=== PATIENT | female | born 1955 | race African-American/Black ===

== ENCOUNTER 2017-05-27 11:01 | Inpatient (IN) ==
[2017-05-27] MEDS ORDERED: SODIUM CHLORIDE 0.9% 1,000 ML IV STA (12:13)
[2017-05-27] MEDS ORDERED: ONDANSETRON 4 MG/2 ML VIAL IV STA (12:13)
--- NOTE | 2017-05-27 12:17 | Emergency Department Note ---
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 C/o LUQ pain. Denies N/V. Mode of Arrival: Ambulatory Limitations: No Limitations Source: Patient, RN Notes Reviewed Time Seen by Provider: 05/27/17 11:30 - History of Present Illness HPI Narrative: - History of Present Illness 62-year-old black female presents to ED with CC of: Blood in stool, dark red, 1 this a.m. Fever: no Keeping fluids down: yes Normal urine output: yes PCP: [facility] PMHx: HTN, GERD, arthritis, previous history of hemorrhoids that she has had surgery for Meds include Celebrex for arthritis Date of Last Menstrual Period: menopause Allergies/Adverse Reactions: Allergies Allergy/AdvReac Type Severity Reaction Status Date / Time No Known Allergies Allergy Verified 05/27/17 11:18 Home Medications: Home Medications Medication Instructions Recorded Confirmed Type Celecoxib 200 mg PO BID 05/27/17 05/27/17 History Gabapentin 300 mg PO TID 05/27/17 05/27/17 History Metoprolol Tartrate 50 mg PO BID 05/27/17 05/27/17 History Omeprazole 40 mg PO DAILY 05/27/17 05/27/17 History amLODIPine [Norvasc] 10 mg PO DAILY 05/27/17 05/27/17 History Review of System - Review of System 12 point system: reviewed and no additional remarkable complaints except as stated - Review of System Constitutional: Absent: fever Respiratory: Absent: respiratory distress, wheezing Cardiovascular: Absent: chest pain, palpitations, dyspnea on exertion Gastrointestinal: Present: as per HPI, abdominal pain, nausea, hematochezia, other (Dark red rectal bleeding). Absent: vomiting, diarrhea, constipation Neurological: Absent: weakness, vertigo Medical,Surgical,& Family Hx - Medical History Cardio: History of: Hypertension Gastrointestinal: History of: GERD, Gastrointestinal Bleed Musculoskeletal: History of: Musculoskeletal Problems (Arthritis) - Surgical History Abdominal Surgeries: Surgical HX of: Abdominal Surgery (hemorrhoid removal) - Social History Smoking Status: Never smoker Frequency of Alcohol Use: None Type of Drug Use: None Exam Physical Examination: - General General appearance: alert, in no apparent distress - HEENT Present: atraumatic, normocephalic, normal inspection, PERRL, EOMI, mucous membranes moist - Neck Neck exam: Present: normal inspection, full ROM - Respiratory Respiratory exam: Present: normal lung sounds bilaterally - Cardiovascular Cardiovascular exam: Present: regular rate, normal rhythm, normal heart sounds - Abdominal Exam Abdominal exam: Present: soft, tenderness: Yes, left upper quadrant; mild, normal bowel sounds. Absent: distention, guarding, - Rectal Exam Rectal exam: Present: Erythema just inside the anal opening, bright red blood on glove, Hemoccult positive - Extremities Exam Extremities exam: Present: normal inspection, full ROM. Absent: pedal edema, joint swelling, calf tenderness - Neurological Exam Neurological exam: Present: alert, oriented X3, no neuorosensory deficits - Psychiatric Psychiatric exam: Present: normal affect, normal mood - Skin Skin exam: Present: warm, dry, intact Vital Signs: Vital Signs Temperature 97.2 F L 05/27/17 20:00 Pulse Rate 78 05/27/17 20:00 Respiratory Rate 20 05/27/17 20:00 Blood Pressure 152/85 05/27/17 20:00 O2 Sat by Pulse Oximetry 94 L 05/27/17 20:00 Course - Consultations Time: 13:40 (Hospitalist service notified of patient presence and status. Will assess for admission.) Time: 14:00 (Hospital service here to assess patient. Will admit.) Procedures - Stool Hemoccult Procedural Steps Taken: stool placed in appropriate test area, developer placed on stool and control areas, controls appropriately positive and negative Hemoccult result: positive Results - Labs CBC & BMP: 05/27/17 22:38 05/27/17 12:17 Lab Results: I have reviewed the patients labs Labs: Laboratory Tests 05/27/17 12:17 INR 1.0 PT Patient/Control Mix 10.9 Circ Anticoag PTT 27.1 Laboratory Tests 05/27/17 12:17 Lipase 258.0 Laboratory Tests 05/27/17 12:17 Urine Color Yellow Urine Appearance Slightly hazy Urine pH 5.0 Ur Specific Ross 1.030 Urine Protein 30 Urine Glucose (UA) Negative Urine Ketones Negative Urine Blood Small Urine Nitrate Negative Urine Bilirubin Negative Urine Urobilinogen < 2.0 H Urine Leukocytes Moderate H Urine RBC 5 Urine WBC 12 Ur Squamous Epith Cells Occasional Urine Bacteria Occasional Urine Mucus Moderate Ur Culture Indicated? Results to follow - EKG EKG results: interpreted by TIMO (No STEMI) - Impressions Abdominal x-ray: Negative bowel gas pattern. Chest x-ray: Borderline cardiomegaly and obesity. No acute cardia pulmonary disease. - Diagnostic Findings Procedure: Abdominal x-ray: report reviewed by me, Chest x-ray: report reviewed by me Disposition Clinical Impression: GI bleed, UTI (urinary tract infection) Disposition: Still a Patient Condition: Stable Time of Disposition: 14:00 (Admit)
--- NOTE | 2017-05-27 12:32 | EKG Report ---
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
[2017-05-27 12:35] LABS: Basophils # 0.1 10*3/uL (0.0-0.2); Eosinophils # 0.2 10*3/uL (0.0-0.87); Eosinophils % 3.9 % (0.00-10.9); Hematocrit 33.8 VOL% (35.7-47.0); Hemoglobin 11.5 GM/DL (12.0-16.0); Immature Granulocytes % 0.5 %; Immature Granulocytes Absolute 0.03 #; Lymphocytes # 1.7 10*3/uL (1.4-4.0); Lymphocytes % 28.9 % (21.3-54.2); Mean Corpuscular Hemoglobin 32 PG (27-34); Mean Corpuscular Volume 94.4 FL (87-102); Mean Platelet Volume 10.6 FL (9.6-12.0); Monocytes # 0.6 10*3/uL (0.11-0.8); Monocytes % 9.7 % (1.7-12.7); Neutrophils # 3.3 10*3/uL (1.4-7.4); Platelet Count 213 T/CUMM (130-400); Red Blood Count 3.58 MC/CUMM (3.8-5.5); Red Cell Distribution Width 12.1 % (9.3-17.3); White Blood Count 5.9 T/CUMM (4-12)
[2017-05-27 12:48] LABS: PT Patient Result 10.9 SECS; Partial Thromboplastin Time 27.1 SECS (0-40)
[2017-05-27] MEDS ORDERED: ONDANSETRON 4 MG/2 ML VIAL ONE (12:55)
[2017-05-27 13:03] LABS: Alanine Aminotransferase 19 U/L (13-56); Albumin 3.2 G/DL (3.4-5.0); Alkaline Phosphatase 81 U/L (45-117); Aspartate Amino Transferase 19 U/L (0-37); Bilirubin,Total < 0.39 MG/DL (0.2-1.0); Blood Urea Nitrogen 17 MG/DL (7-18); Glucose 119 MG/DL (74-106); Osmolality,Calculated 283.3 MOS/KG (273-304); Potassium 3.5 MMOL/L (3.5-5.1); Sodium 141 MMOL/L (136-145); Total Protein 6.6 G/DL (6.4-8.3); Troponin I Only < 0.015 NG/ML (0.00-0.045)
--- NOTE | 2017-05-27 13:17 | XRay Report ---
XR chest 1V portable Indication: Shortness of breath. Chest one view: Comparison 06/05/2012. Obesity again shown. Heart size upper limits normal. Mediastinal contours unremarkable. No focal infiltrates. Impression: Borderline cardiomegaly and obesity. No acute cardia pulmonary disease. PROCEDURE INTERPRETED AT [facility] DEPARTMENT OF RADIOLOGY Final Report Signed by: Sagar Glover M.D.
--- NOTE | 2017-05-27 13:17 | XRay Report ---
XR abdomen complete w decub Indication: Abdominal pain. Abdomen 3 views: No small bowel dilatation. Normal amount of stool and gas projects over the colon, without dilatation. No evidence of free air. No abnormal calcifications or masses. Degenerative changes lumbosacral spine are significant. Impression: Negative bowel gas pattern. PROCEDURE INTERPRETED AT [facility] DEPARTMENT OF RADIOLOGY Final Report Signed by: Sagar Glover M.D.
[2017-05-27 13:31] LABS: Apearance,Urine Slightly Hazy (Clear); Bacteria,Urine Occasional /HPF (Few); Bilirubin,Urine Negative (Negative); Blood, Urine Small mg/dL (Negative); Glucose,Urine (UA) Negative (Negative); Ketones,Urine Negative (Negative); Mucus,Urine Moderate /LPF (Occasional); Nitrite,Urine Negative (Negative); Protein,Urine 30 MG/DL; RBC,Urine 5 /HPF (0-4); Squamous Epithelial Cell,Urine Occasional /HPF (0-10); Urine Color Yellow (Yellow); Urine Urobilinogen < 2.0 EU/DL (0.2-1.0); WBC,Urine 12 /HPF (0-6)
[2017-05-27] MEDS ORDERED: KETOROLAC 30 MG/1 ML VIAL ONE (13:32)
[2017-05-27] MEDS ORDERED: KETOROLAC 30 MG/1 ML VIAL IV STA (13:33)
--- NOTE | 2017-05-27 14:34 | Hospitalist History & Physical ---
<Aly Smith - Last Filed: 05/27/17 14:35> Assessment and Plan - Time spent with patient Time spent with patient: Greater than 30 minutes (1) GI bleed Status: Acute Assessment and plan: Patient reports one episode of dark red stool this morning. Patient does take Celebrex for arthritis. This could be a potential source for the bleed. Vital signs are stable though her blood pressure does seem to be dropping. H&H is currently 11 and 33. Admitted for observation. IV fluids for maintenance. Type and screen. Serial H&H's and EKGs. Current Visit: Yes (2) UTI (urinary tract infection) Status: Acute Assessment and plan: Urine culture to follow. IV antibiotics empirically. Current Visit: Yes (3) Hypertension Status: Acute Assessment and plan: Monitor BP. Hold all antihypertensives at the moment. Current Visit: Yes (4) Arthritis Status: Acute Assessment and plan: Patient takes Celebrex. This could be the source of her bleeding. Will cautiously hold. Current Visit: Yes History of Present Illness Chief complaint: BRBPR History of present illness: Ms. Brito is a 62 year old -[place] female with a past medical history significant for hypertension, arthritis, GERD, hemorrhoids who presents to the ED today with complaints of bloody stool having onset this morning at approximately 1045. Patient reports that she noticed dark red stool in the toilet after a bowel movement this morning at work. She states this is the first time anything like this is happening. She denies any headache, dizziness , blurry vision, syncope, faint feelings, chest pain, palpitations, shortness of breath, hematemesis, hematuria. She denies any recent illness or sick contacts. She complains of mid abdominal pain that is "dull and intermittent". Patient's blood pressure on admission was 121/64. However, 2 hours later, patient blood pressure is 113/74. All other vitals are stable. Lab work reveals hemoglobin 11.5, hematocrit 33.8. Urinalysis reveals moderate leukocytes, occasional squamous epithelial cells and bacteria. UC results to follow. The patient is followed by physicians at the local [facility]. This case been discussed with Dr. Bethea, and the patient will be admitted to the hospital medicine service for further evaluation and treatment. Patient is a full code. Patient did not bring medications from home however she states that she takes 2 antihypertensive medications (which she does not recall the name of), Celebrex (potential source for bleeding), and Prilosec. Her daughter has agreed to go home and retrieve the medications for us. Allergies Allergy/AdvReac Type Severity Reaction Status Date / Time No Known Allergies Allergy Verified 05/27/17 11:18 Medical,Surgical,& Family Hx - Medical History Cardio: History of: Hypertension Gastrointestinal: History of: GERD, Gastrointestinal Bleed Musculoskeletal: History of: Musculoskeletal Problems (Arthritis) - Surgical History Abdominal Surgeries: Surgical HX of: Abdominal Surgery (hemorrhoid removal) - Family History Family History: Reports;: Family Diabetes, Family Heart Disease, Family Hypertension - Social History Smoking Status: Never smoker Frequency of Alcohol Use: None Type of Drug Use: None Marital Status: Single Lives With:: Alone Functional capacity: independent ambulation - Constitutional Constitutional: Present: fatigue, weakness. Absent: frequent falls, headache(s) - EENT Eyes: Absent: blurry vision, loss of vision Nose, mouth and throat: Absent: headache(s), hoarseness, vertigo - Cardiovascular Cardiovascular: Absent: chest pain at rest, chest pain with activity, dyspnea, dyspnea on exertion, edema, palpitations - Respiratory Respiratory: Absent: cough, dyspnea, hemoptysis, wheezing, pain on inspiration - Gastrointestinal Gastrointestinal: Present: abdominal pain, hematochezia. Absent: change in bowel habits, diarrhea, melena, nausea, vomiting - Genitourinary Genitourinary: Absent: dysuria, flank pain, hematuria - Musculoskeletal Musculoskeletal: Present: arthralgias - Neurological Neurological: Absent: abnormal gait, confusion, dizziness, headache(s), numbness , syncope - Psychiatric Psychiatric: Absent: anxiety, confusion, depression - Endocrine Endocrine: Present: cold intolerance, heat intolerance - Hematologic/Lymphatic Hematologic/Lymphatic: Absent: easy bleeding, easy bruising Exam - Constitutional Vitals: Period Temp Pulse Resp BP Sys/Cantor Pulse Ox Last 24 Hr 98.1 F-98.1 F 66-82 17-18 113-121/64-74 97 Exam: General appearance: Obese, no acute distress - Head Head exam: Present: normocephalic, atraumatic - Eye Eye exam: Present: EOMI. Absent: conjunctival injection, nystagmus Pupils: Present: DEE DEE, normal accommodation - ENT ENT exam: Present: normal exam, normal external ear exam - Neck Neck exam: Present: normal inspection. Absent: lymphadenopathy, tenderness, thyromegaly - Respiratory Respiratory exam: Present: clear to auscultation bilaterally. Absent: rales, rhonchi, wheezes - Cardiovascular Cardiovascular exam: Present: regular rate and rhythm, murmur. Absent: carotid bruit, gallop, rubs - GI/Abdominal GI/Abdominal exam: Present: normal bowel sounds. Absent: ascites, distended, mass - Extremities Exam Extremities exam: Present: normal inspection, normal capillary refill. Absent: edema - Back Exam Back exam: Absent: CVA tenderness (L), CVA tenderness (R) - Neurological Exam Neurological exam: Present: alert, oriented X3, CN II-XII intact, reflexes normal - Psychiatric Psychiatric exam: Present: normal affect, normal mood - Skin Skin exam: Present: normal color, warm, dry Results - Labs CBC & BMP: 05/27/17 12:17 05/27/17 12:17 Lab Results: I have reviewed the past 24 hour labs - EKG EKG results: interpreted by TIMO, sinus rhythm <Trisha Bethea - Last Filed: 05/27/17 16:40> History of Present Illness History of present illness: Patient seen and examined independently of MARTI Smith, agree with history, assessment and plan as documented. 62 y/o AAF presents with dark red blood in her stool. Reports that this has only happened once several years ago following hernia surgery. She denies ever having a colonoscopy or egd. H/H is ok right now. Will continue to monitor H/H. IV fluids. Will consult GI. Exam - Constitutional Vitals: Period Temp Pulse Resp BP Sys/Cantor Pulse Ox Last 24 Hr 98.1 F-98.1 F 66-82 17-18 113-121/64-74 97 Results - Labs CBC & BMP: 05/27/17 16:06 05/27/17 12:17
[2017-05-27] MEDS ORDERED: ACETAMINOPHEN 325 MG TABLET PO PRN (14:49)
[2017-05-27 16:21] LABS: Hematocrit 33.1 VOL% (35.7-47.0); Hemoglobin 11.2 GM/DL (12.0-16.0)
[2017-05-27] MEDS: SODIUM CHLORIDE 0.9% 1,000 ML IV SCH (16:21)
[2017-05-27] MEDS: LEVOFLOXACIN INJ 750 MG in PREMIX 1 EACH IV SCH (16:50)
--- NOTE | 2017-05-27 17:19 | Gastrointestinal Consult Note ---
Assessment and Plan (1) GI bleed Status: Acute Assessment and plan: This patient is having maroon colored stools and although I suspect that she may be having an upper GI bleed possibly caused by the Celebrex that she has ingested this is by no means assured. We will perform upper endoscopy tomorrow in order to assess this. I suspect that if no significant cause of bleeding is discovered will probably leave her on clear liquids with a bowel prep that night and clean her out completely for colonoscopy on 05/29/17. We did discuss potential risks of the upper endoscopy and lower endoscopy which include but are not limited to bleeding, infection, perforation, cardiac and pulmonary compromise. She will be left on a clear liquid diet tonight and n.p.o. after midnight for the above procedure tomorrow. If ulcer that is not noted to be bleeding is discovered on upper endoscopy we could potentially let the patient go tomorrow morning after the procedure, provided her hematocrit is stable. Current Visit: Yes (2) Posthemorrhagic anemia Status: Acute Assessment and plan: As per the plan noted above. Upper endoscopy tomorrow to be followed possibly by colonoscopy if no significant cause for bleeding is noted. Patient is on Protonix 40 mg twice daily, further recommendations post endoscopy. Transfuse if patient's hematocrit drops below 24%. Transfusion parameters written. Hold Celebrex for the present time. Current Visit: Yes (3) Screening for colorectal cancer Status: Acute Assessment and plan: If the patient ends up having a lesion that explains the blood loss we can certainly schedule colonoscopy down the road to follow at some point. She is 62 and has never had a colonoscopy up to this point and does certainly need this. Current Visit: Yes History of Present Illness Chief complaint: Maroon stools, Celebrex use, bilateral upper quadrant pain, anemia History of present illness: Ms. 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 This started about 1045. She has never had a sensation like this before the patient does take Celebrex twice daily for arthritides. She went to the bathroom and subsequently passed a number of maroon stools. She has had some nausea but no vomiting, she states that she has vomited in the last 1 week and that she did not see anything that look like coffee grounds in that vomitus. She has never had a colonoscopy. She does not recall having previous upper endoscopy either. She follows with the physicians a [facility] [place]. Her hematocrit this admission was noted to be 33.8 percent and has not dropped significantly in the last 4 hours between 12 :00 and 1600 (33.1%). She has not had any abnormal chest pain nor does she typically have reflux symptoms. She has not had any bright red blood per rectum. Typically she does not have any diarrhea or constipation. She does not know of any family members with colorectal cancer or polyps. Home Medications Medication Instructions Recorded Confirmed Type Celecoxib 200 mg PO BID 05/27/17 05/27/17 History Gabapentin 300 mg PO TID 05/27/17 05/27/17 History Metoprolol Tartrate 50 mg PO BID 05/27/17 05/27/17 History Omeprazole 40 mg PO DAILY 05/27/17 05/27/17 History amLODIPine [Norvasc] 10 mg PO DAILY 05/27/17 05/27/17 History Allergies Allergy/AdvReac Type Severity Reaction Status Date / Time No Known Allergies Allergy Verified 05/27/17 11:18 Medical,Surgical,& Family Hx - Medical History Cardio: History of: Hypertension Gastrointestinal: History of: GERD, Gastrointestinal Bleed Musculoskeletal: History of: Musculoskeletal Problems (Arthritis) - Surgical History Abdominal Surgeries: Surgical HX of: Abdominal Surgery (hemorrhoid removal) - Family History Family History: Reports;: Family Diabetes, Family Heart Disease, Family Hypertension - Social History Smoking Status: Never smoker Frequency of Alcohol Use: None Type of Drug Use: None Review of systems: Constitutional: Denies fever, chills, but positive for nausea, and vomiting Eyes: Denies dry eyes, and scleral icterus HENT: Denies headaches Cardiovascular: Denies acute chest pain and claudication Respiratory: Denies shortness of breath, wheezing, and difficulty breathing, denies cough Gastrointestinal: As noted in the HPI Genitourinary: Denies dysuria and hematuria Neurologic: Denies vision loss, and loss of sensation Musculoskeletal: Patient does admit to some joint swelling, joint stiffness, and muscular weakness Psychiatric: Denies depression and jesse symptoms Heme-Lymph: Denies easy bruising, lymph node enlargement or tenderness, night sweats, excessive bleeding Allergies-immunologic: Denies pruritus and rhinorrhea Exam - Constitutional Vitals: Period Temp Pulse Resp BP Sys/Cantor Pulse Ox Last 24 Hr 98.1 F-98.3 F 66-82 17-20 113-132/64-74 94-97 General appearance: no acute distress - Head Head exam: Present: normocephalic - Eye Eye exam: Present: EOMI Pupils: Present: DEE DEE - Respiratory Respiratory exam: Present: clear to auscultation bilaterally. Absent: rhonchi, stridor, wheezes - Cardiovascular Cardiovascular exam: Present: regular rate and rhythm - GI/Abdominal GI/Abdominal exam: Present: normal bowel sounds, tenderness (Mild bilateral upper quadrant pain slightly worse in the epigastric region), soft. Absent: distended, guarding, rebound - Extremities Exam Extremities exam: Absent: edema - Neurological Exam Neurological exam: Present: alert, oriented X3, CN II-XII intact. Absent: altered - Psychiatric Psychiatric exam: Present: normal affect, normal mood - Skin Skin exam: Present: warm Results - Labs CBC & BMP: 05/27/17 16:06 05/27/17 12:17
[2017-05-27] MEDS ORDERED: SODIUM CHLORIDE 0.9% 250 ML IV PRN (17:27)
[2017-05-27] MEDS: PANTOPRAZOLE 40 MG VIAL IV SCH (21:18)
[2017-05-27 22:53] LABS: Hematocrit 32.5 VOL% (35.7-47.0); Hemoglobin 10.7 GM/DL (12.0-16.0)
[2017-05-28] MEDS: SODIUM CHLORIDE 0.9% 1,000 ML IV SCH ×3 (02:34→13:33)
[2017-05-28 05:45] LABS: Eosinophils # 0.2 10*3/uL (0.0-0.87); Eosinophils % 3.6 % (0.00-10.9); Hematocrit 33.5 VOL% (35.7-47.0); Hemoglobin 11.2 GM/DL (12.0-16.0); Immature Granulocytes % 0.5 %; Immature Granulocytes Absolute 0.02 #; Lymphocytes # 1.5 10*3/uL (1.4-4.0); Lymphocytes % 36.8 % (21.3-54.2); Mean Corpuscular HGB Conc 33.4 GM/DL (32-36); Mean Corpuscular Hemoglobin 32 PG (27-34); Mean Corpuscular Volume 94.9 FL (87-102); Mean Platelet Volume 10.6 FL (9.6-12.0); Monocytes # 0.4 10*3/uL (0.11-0.8); Monocytes % 9.2 % (1.7-12.7); Neutrophils % 48.9 % (38.7-73.9); Platelet Count 193 T/CUMM (130-400); Red Blood Count 3.53 MC/CUMM (3.8-5.5); Red Cell Distribution Width 12.2 % (9.3-17.3); White Blood Count 4.1 T/CUMM (4-12)
[2017-05-28 06:03] LABS: INR 1.1; PT Patient Result 11.6 SECS
[2017-05-28 06:20] LABS: Calcium 8.3 MG/DL (8.5-10.1); Osmolality,Calculated 286.7 MOS/KG (273-304); Potassium 3.7 MMOL/L (3.5-5.1); Risk Ratio 3.63
[2017-05-28 06:27] LABS: Platelet Estimate Normal
[2017-05-28 07:42] LABS: Hematocrit 34.3 VOL% (35.7-47.0); Hemoglobin 11.4 GM/DL (12.0-16.0)
[2017-05-28] MEDS: PANTOPRAZOLE 40 MG VIAL IV SCH ×2 (08:29→21:09)
--- NOTE | 2017-05-28 09:26 | Operative Note ---
Date of procedure: 05/28/17 Pre-op diagnosis: Upper GI bleed with hematocrit 32-34%, Celebrex use Post-op diagnosis: other (The patient has a mild anemia but no significant irritation caused by the Celebrex, there is a diffuse gastritis noted that is quite severe and appears to be likely due to Helicobacter pylori, biopsies are pending. 4 cm hiatal hernia and a Schatzki's ring are also noted the patient was dilated to 58 [place] due to this Schatzki's ring. Biopsies are pending for celiac sprue as well given the anemia. We will proceed with a colonoscopy tomorrow as findings do not completely explain the maroon colored blood loss.) Procedure: PROCEDURE: Esophagogastroduodenoscopy (EGD) with cold biopsy for pathology with dilation to 58 [place] by single pass Tompkins dilator REFERRING PHYSICIAN: Trisha Bethea MD INDICATIONS: Upper GI bleeding with hematocrit dropped to 32-34% and history of Celebrex use The prior H&P was reviewed and interrim changes are as noted: No change from GI consultation yesterday 05/27/17 ENDOSCOPIST: Phillip Serrato MD ENDOSCOPE: Olympus Video 100 System upper endoscope ASA CLASS: 3 EXAM: CV: regular rate and rhythm respiratory: Clear without wheezes abdominal: active bowel sounds MEDICATION: Per nursing anesthesia protocol, see their notes PROCEDURE: After discussion of the potential risks and benefits of upper endoscopy, the informed consent was obtained. The patient was then placed in the left lateral decubitus position where sedation was achieved as noted above. Esophageal intubation was performed without difficulty, and the endoscope was advanced through the esophagus, stomach and duodenum. A slow withdrawal was then performed with retroflexion in the stomach for careful inspection of the incisura angularis, fundus and cardia. The scope was then returned to a neutral position and withdrawn through the esophagus. There was some oropharyngeal bleeding. Unfortunately the patient developed laryngeal spasm during the case and dropped her saturation down to the single digits, she was switched over to airway bagging however this was not completely successful and the patient had to be treated with anectine and intubated. Otherwise the patient tolerated the procedure quite well. BIOPSIES: Gastric antrum/body and duodenum PHOTOGRAPHS: Obtained FINDINGS: Hypopharynx and Larynx: Oropharyngeal bleeding noted here of unclear cause. The patient did develop some laryngeal spasm during the procedure and brief discontinuation of the procedure required intubation, with completion thereafter Esohagoscopy Upper and middle thirds: Normal Lower third normal Esophogastric junctions: There was a Schatzki's ring noted at the EG junction that was widely patent however this was dilated to 58 [place] by single pass Tompkins dilator at the end of the case. With a moderate amount of heme and no significant resistance. Note that the patient was having some oral pharyngeal bleeding prior to the dilation Gastroscopy: Cardia/Fundus: 4 cm hiatal hernia otherwise a severe diffuse gastritis noted consistent with HP infection Body: Severe diffuse gastritis noted there was nonerosive consistent with Helicobacter pylori infection Antrum and pylorus The patient did have some patchy gastritis with a few erosions noted but not enough to produce the above blood loss. Duodenoscopy: Bulb normal, biopsied for sprue Second and third portions: Normal, biopsied for sprue IMPRESSION: The patient has a mild anemia but no significant irritation caused by the Celebrex, there is a diffuse gastritis noted that is quite severe and appears to be likely due to Helicobacter pylori, biopsies are pending. 4 cm hiatal hernia and a Schatzki's ring are also noted the patient was dilated to 58 [place] due to this Schatzki's ring. Biopsies are pending for celiac sprue as well given the anemia. We will proceed with a colonoscopy tomorrow as findings do not completely explain the maroon colored blood loss. RECOMMENDATIONS: Follow up for biopsy results in 1-2 weeks by phone [phone] Continue anti-gastroesophageal reflux measures (avoid carbonated and acidic beverages, avoid eating within 2 hours of bedtime, avoid tight fitting clothing , and elevate the front bed posts 6 inches prior to sleeping. Clear liquid diet today Colonoscopy prep tonight Phillip Serrato MD COPY TO: Trisha Bethea MD Anesthesia: MAC Surgeon / Physician: Phillip Serrato Estimated blood loss: minimal Specimens: other (Gastric antrum/body, duodenum) Condition: stable Disposition: post procedure unit (G.I. Suite) Results - Labs CBC & BMP: 05/28/17 07:08 05/28/17 05:13 Discharge Plan - Discharge Medications No Action Gabapentin 300 mg PO TID Omeprazole 40 mg PO DAILY Metoprolol Tartrate 50 mg PO BID amLODIPine [Norvasc] 10 mg PO DAILY Celecoxib 200 mg PO BID - Follow Up or Referral - Forms/Instructions
--- NOTE | 2017-05-28 09:34 | Gastrointestinal Progress Note ---
Assessment and Plan (1) GI bleed Status: Acute Assessment and plan: This patient is having maroon colored stools and although I suspect that she may be having an upper GI bleed possibly caused by the Celebrex that she has ingested this is by no means assured. We will perform upper endoscopy tomorrow in order to assess this. I suspect that if no significant cause of bleeding is discovered will probably leave her on clear liquids with a bowel prep that night and clean her out completely for colonoscopy on 05/29/17. We did discuss potential risks of the upper endoscopy and lower endoscopy which include but are not limited to bleeding, infection, perforation, cardiac and pulmonary compromise. She will be left on a clear liquid diet tonight and n.p.o. after midnight for the above procedure tomorrow. If ulcer that is not noted to be bleeding is discovered on upper endoscopy we could potentially let the patient go tomorrow morning after the procedure, provided her hematocrit is stable. 05/28/17--No cause seen for bleeding on the upper GI tract to the magnitude seen on exam, will proceed with colonoscopy tomorrow after prep today. Current Visit: Yes (2) Posthemorrhagic anemia Status: Acute Assessment and plan: As per the plan noted above. Upper endoscopy tomorrow to be followed possibly by colonoscopy if no significant cause for bleeding is noted. Patient is on Protonix 40 mg twice daily, further recommendations post endoscopy. Transfuse if patient's hematocrit drops below 24%. Transfusion parameters written. Hold Celebrex for the present time. 05/28/17--The patient has a mild anemia but no significant irritation caused by the Celebrex, there is a diffuse gastritis noted that is quite severe and appears to be likely due to Helicobacter pylori, biopsies are pending. 4 cm hiatal hernia and a Schatzki's ring are also noted the patient was dilated to 58 [place] due to this Schatzki's ring. Biopsies are pending for celiac sprue as well given the anemia. We will proceed with a colonoscopy tomorrow as findings do not completely explain the maroon colored blood loss. Current Visit: Yes (3) Screening for colorectal cancer Status: Acute Assessment and plan: If the patient ends up having a lesion that explains the blood loss we can certainly schedule colonoscopy down the road to follow at some point. She is 62 and has never had a colonoscopy up to this point and does certainly need this. 05/28/17--we will proceed with colonoscopy tomorrow, given the lack of findings on today's upper endoscopy. Current Visit: Yes Gastroenterology - PN: Subj Interval history: No new complaints Exam (Progress Note) - Constitutional Vitals: Period Temp Pulse Resp BP Sys/Cantor Pulse Ox Last 24 Hr 97.2 F-98.7 F 66-82 17-20 113-152/64-85 92-98 General appearance: no acute distress - Eye Eye exam: Present: EOMI - Respiratory Respiratory exam: Present: clear to auscultation bilaterally. Absent: rhonchi, stridor, wheezes - Cardiovascular Cardiovascular exam: Present: regular rate and rhythm - GI/Abdominal GI/Abdominal exam: Present: normal bowel sounds, soft. Absent: guarding, tenderness, rebound - Extremities Exam Extremities exam: Absent: edema - Neurological Exam Neurological exam: Present: alert, oriented X3 - Psychiatric Psychiatric exam: Present: normal affect, normal mood - Skin Skin exam: Present: warm Results - Labs CBC & BMP: 05/28/17 07:08 05/28/17 05:13
--- NOTE | 2017-05-28 09:37 | Anesthesia Post-Op ---
Anesthesia Post OP - Post Ansesthetic Evaluation Patient seen in post op: Yes Resp: within normal limits CV: within normal limits Mental: within normal limits Temp: within normal limits [id number]: within normal limits Nausea and Vomiting: within normal limits Pain: within normal limits Other:: Pt with laryngospasm during procedure. Unable to break with positive pressure. anectine given and patient intubated without complications. Pt awake and appropriate without distress in PACU. Racemic epi tx given. VSS.
[2017-05-28] MEDS: BISACODYL 5 MG TABLET PO SCH ×2 (10:23→16:57)
[2017-05-28] MEDS ORDERED: SUCCINYLCHOLINE 200 MG/10 ML VIAL ONE (10:49)
[2017-05-28] MEDS ORDERED: PROPOFOL 200 MG/20 ML VIAL IV ONE (10:49)
--- NOTE | 2017-05-28 10:53 | EKG Report ---
Stationary ECG Study [facility] Test Date: 05/28/2017 8:09:37 AM Pat Name: SARI CORONA Department: Room: Gender: F [employer] Hand: PRISCILLA : 1955 Requested by: Aly Smith Order Number: [id number] Reading MD: VINAY MICHAEL Intervals [place] Rate: 68 P: 44 VT: 154 QRS: -10 QRSD: 116 T: 30 QT: 377 QTc: 395 Interpretive Statements SINUS RHYTHM MODERATE INTRAVENTRICULAR CONDUCTION DELAY MODERATE T-WAVE ABNORMALITY, CONSIDER ANTERIOR ISCHEMIA INTERPRETATION BASED ON A DEFAULT AGE OF 40 YEARS Electronically Signed On 05-28-17 10:53:32 CDT by VINAY MCIHAEL [email or web address]
[2017-05-28] MEDS ORDERED: PHENOL 1.4% THROAT SPRAY 177 ML BOTTLE PO PRN (13:08)
--- NOTE | 2017-05-28 13:46 | Hospitalist Progress Note ---
Assessment and Plan (1) GI bleed Status: Acute Assessment and plan: EGD today with no cause of bleeding Plan is for colonoscopy tomorrow GI assisting Current Visit: Yes (2) UTI (urinary tract infection) Status: Acute Assessment and plan: Continue rocephin F/u urine culture Current Visit: Yes (3) Hypertension Status: Acute Assessment and plan: Controlled Current Visit: Yes Hospitalist: Subjective Interval history: No acute events overnight. Patient denies repeat episodes of bleeding. EGD today Exam - Constitutional Vitals: Period Temp Pulse Resp BP Sys/Cantor Pulse Ox Last 24 Hr 97.0 F-98.7 F 69-104 13-20 112-168/69-070 92-100 General appearance: over weight - Head Head exam: Present: normocephalic, atraumatic - Eye Eye exam: Present: EOMI Pupils: Present: DEE DEE - ENT ENT exam: Present: normal exam - Neck Neck exam: Present: normal inspection - Respiratory Respiratory exam: Present: clear to auscultation bilaterally. Absent: wheezes - Cardiovascular Cardiovascular exam: Present: regular rate and rhythm - GI/Abdominal GI/Abdominal exam: Present: normal bowel sounds, soft. Absent: tenderness, rebound - Extremities Exam Extremities exam: Present: normal inspection - Back Exam Back exam: Present: normal inspection - Neurological Exam Neurological exam: Present: alert, oriented X3 - Psychiatric Psychiatric exam: Present: normal affect, normal mood - Skin Skin exam: Present: warm, intact Results - Labs CBC & BMP: 05/28/17 07:08 05/28/17 05:13
[2017-05-28] MEDS: LEVOFLOXACIN INJ 750 MG in PREMIX 1 EACH IV SCH (14:29)
[2017-05-28] MEDS ORDERED: POLYETHYLENE GLYCOL POWDER 255 GM BOTTLE PO ONE (18:00)
[2017-05-28 18:28] LABS: Hematocrit 38.9 VOL% (35.7-47.0); Hemoglobin 12.8 GM/DL (12.0-16.0)
[2017-05-28] MEDS ORDERED: MAGNESIUM CITRATE 300 ML BOTTLE PO ONE (21:00)
[2017-05-29] MEDS: SODIUM CHLORIDE 0.9% 1,000 ML IV SCH ×2 (03:39)
[2017-05-29] MEDS: BISACODYL 5 MG TABLET PO SCH (03:39)
[2017-05-29 06:15] LABS: Basophils % 0.3 % (0.0-0.8); Eosinophils # 0.1 10*3/uL (0.0-0.87); Eosinophils % 0.8 % (0.00-10.9); Hematocrit 34.6 VOL% (35.7-47.0); Hemoglobin 11.4 GM/DL (12.0-16.0); Immature Granulocytes % 0.5 %; Immature Granulocytes Absolute 0.03 #; Lymphocytes # 1.8 10*3/uL (1.4-4.0); Lymphocytes % 27.5 % (21.3-54.2); Mean Corpuscular HGB Conc 32.9 GM/DL (32-36); Mean Corpuscular Hemoglobin 31 PG (27-34); Mean Corpuscular Volume 94.8 FL (87-102); Mean Platelet Volume 10.8 FL (9.6-12.0); Monocytes # 0.6 10*3/uL (0.11-0.8); Monocytes % 9.2 % (1.7-12.7); Neutrophils # 4.1 10*3/uL (1.4-7.4); Neutrophils % 61.7 % (38.7-73.9); Platelet Count 219 T/CUMM (130-400); Red Blood Count 3.65 MC/CUMM (3.8-5.5); Red Cell Distribution Width 12.2 % (9.3-17.3); White Blood Count 6.7 T/CUMM (4-12)
[2017-05-29 06:23] LABS: INR 1.1; PT Patient Result 11.6 SECS
[2017-05-29 06:40] LABS: Hypochromasia 1+; Lymphocytes 29 % (20-55); Platelet Estimate Adequate; Polychromasia Slight; Segmented Neutrophils 66 % (50-85); Total Cells Counted 100
[2017-05-29] MEDS: LEVOFLOXACIN INJ 750 MG in PREMIX 1 EACH IV SCH (08:00)
[2017-05-29] MEDS: PANTOPRAZOLE 40 MG VIAL IV SCH (08:00)
[2017-05-29] MEDS ORDERED: PROPOFOL 200 MG/20 ML VIAL IV ONE (13:30)
[2017-05-29] MEDS ORDERED: LIDOCAINE 2% 5 ML VIAL ONE (13:30)
--- NOTE | 2017-05-29 13:36 | Operative Note ---
Date of procedure: 05/29/17 Pre-op diagnosis: Rectal bleeding, hematocrit of 34%, rule out colonic cause Post-op diagnosis: other (Normal colonoscopy with heavy bowen-diverticulosis noted possibly the source of this patient's previous bleeding. No polyps or other bleeding source seen, moderate size internal hemorrhoids noted on retroflex. Evidence of previous polypectomy site noted in the rectum.) Procedure: PROCEDURE: Colonoscopy REFERRING PHYSICIAN: Trisha Bethea MD INDICATIONS: Hematocrit dropped to 34% in a patient who has minimal upper findings and rectal bleeding. The prior H&P was reviewed and interrim changes are as noted: No change from GI consultation 2 days ago ENDOSCOPIST: Phillip Serrato MD ENDOSCOPE: Olympus Video 100 System colonoscope COLON PREPARATION: 238 gm of PEG containing laxative and 1.9 liters of gatoraid/sports drink and dulcolax 15 mg q8 hours x 3 ASA CLASS: 3 EXAM: CV: regular rate and rhythm Respiratory: Clear without wheezes Abdominal: active bowel sounds Rectal: Good tone, no fissures or fistulas MEDICATION: Per nursing anesthesia protocol, see their notes PROCEDURE: After discussion of the potential risks and benefits of colonoscopy, the informed consent was obtained, from patient or health care surrogate. The patient was then placed in the left lateral decubitus position where sedation was achieved as noted above. Rectal examination was followed by insertion of the colonoscope. The colonoscope was passed under direct visualization to the cecum. Advancement was facilitated by insertion/withdrawl techniques, abdominal pressure and patient positioning. Once the cecal pole was reached, slow withdrawal was performed with the findings as noted below. The patient tolerated the procedure well and without complication. QUALITY OF PREP: Excellent WITHDRAWL TIME: 7 minutes 13 seconds BIOPSIES: Not obtained PHOTOGRAPHS: Obtained FINDINGS: The musoca appeared normal in the following regions: rectum, sigmoid colon, descending colon, splenic flexure, transverse colon, hepatic flexure, ascending colon and cecum. Position within the cecum was confirmed by ileocecal valve, appendiceal oriface, and the convergence of folds (crows foot) . No colitis, polyp, mass or AVM was noted throughout the colon. Heavy bowen- diverticulosis noted. Slight scarring from previous polypectomy done in the rectum. It is possible of the diverticulosis was the source the patient's bleeding, was not bleeding at the time of the endoscopy. Intubation of the TI was achieved x 5 cm with lymphoid hyperplasia noted. IMPRESSION: Normal colonoscopy with heavy bowen-diverticulosis noted possibly the source of this patient's previous bleeding. No polyps or other bleeding source seen, moderate size internal hemorrhoids noted on retroflex. Evidence of previous polypectomy site noted in the rectum. RECOMMENDATIONS: High fiber diet Repeat colonosocopy will be in 5-10 years Citrucel 1 tablespoon in 12 oz juice BID: 1 bottle: :11 Follow up by phone for biopsy results in 1-2 weeks by phone Phillip Serrato MD COPY TO: Trisha Bethea MD Anesthesia: MAC Surgeon / Physician: Phillip Serrato Estimated blood loss: minimal Specimens: none sent Condition: stable Disposition: post procedure unit (G.I. Suite) Results - Labs CBC & BMP: 05/29/17 05:27 05/28/17 05:13 Discharge Plan - Discharge Medications No Action Gabapentin 300 mg PO TID Omeprazole 40 mg PO DAILY Metoprolol Tartrate 50 mg PO BID amLODIPine [Norvasc] 10 mg PO DAILY Celecoxib 200 mg PO BID - Follow Up or Referral - Forms/Instructions
--- NOTE | 2017-05-29 13:38 | Gastrointestinal Progress Note ---
Assessment and Plan (1) GI bleed Status: Acute Assessment and plan: This patient is having maroon colored stools and although I suspect that she may be having an upper GI bleed possibly caused by the Celebrex that she has ingested this is by no means assured. We will perform upper endoscopy tomorrow in order to assess this. I suspect that if no significant cause of bleeding is discovered will probably leave her on clear liquids with a bowel prep that night and clean her out completely for colonoscopy on 05/29/17. We did discuss potential risks of the upper endoscopy and lower endoscopy which include but are not limited to bleeding, infection, perforation, cardiac and pulmonary compromise. She will be left on a clear liquid diet tonight and n.p.o. after midnight for the above procedure tomorrow. If ulcer that is not noted to be bleeding is discovered on upper endoscopy we could potentially let the patient go tomorrow morning after the procedure, provided her hematocrit is stable. 05/28/17--No cause seen for bleeding on the upper GI tract to the magnitude seen on exam, will proceed with colonoscopy tomorrow after prep today. 05/29/17--after yesterday's EGD, a colonoscopy was performed today with the following findings: Normal colonoscopy with heavy bowen-diverticulosis noted possibly the source of this patient's previous bleeding. No polyps or other bleeding source seen, moderate size internal hemorrhoids noted on retroflex. Evidence of previous polypectomy site noted in the rectum. As this patient's hematocrit is stable she is ready for discharge at this time in my opinion. I suspect the bleeding may have had similar do with the diverticular sites noted throughout the colon but I cannot say this for a fact. Current Visit: Yes (2) Posthemorrhagic anemia Status: Acute Assessment and plan: As per the plan noted above. Upper endoscopy tomorrow to be followed possibly by colonoscopy if no significant cause for bleeding is noted. Patient is on Protonix 40 mg twice daily, further recommendations post endoscopy. Transfuse if patient's hematocrit drops below 24%. Transfusion parameters written. Hold Celebrex for the present time. 05/28/17--The patient has a mild anemia but no significant irritation caused by the Celebrex, there is a diffuse gastritis noted that is quite severe and appears to be likely due to Helicobacter pylori, biopsies are pending. 4 cm hiatal hernia and a Schatzki's ring are also noted the patient was dilated to 58 Yi due to this Schatzki's ring. Biopsies are pending for celiac sprue as well given the anemia. We will proceed with a colonoscopy tomorrow as findings do not completely explain the maroon colored blood loss. 05/29/17--the patient had only minimal changes in her hematocrit which in the interim went up to 38% back down to 34%. She is doing well at this time. Colonoscopy findings as noted above. Current Visit: Yes (3) Screening for colorectal cancer Status: Acute Assessment and plan: If the patient ends up having a lesion that explains the blood loss we can certainly schedule colonoscopy down the road to follow at some point. She is 62 and has never had a colonoscopy up to this point and does certainly need this. 05/28/17--we will proceed with colonoscopy tomorrow, given the lack of findings on today's upper endoscopy. 05/29/17--Patient will need repeat colonoscopy in 5 possibly as long as 10 years. No polyps were found on today's exam, but a post polypectomy site was noted in the rectum. Current Visit: Yes Gastroenterology - PN: Subj Interval history: No new complaints Exam (Progress Note) - Constitutional Vitals: Period Temp Pulse Resp BP Sys/Cantor Pulse Ox Last 24 Hr 97.6 F-99.0 F 83-102 16-20 131-150/75-93 92-97 - Head Head exam: Present: normocephalic, atraumatic - Eye Eye exam: Present: EOMI Pupils: Present: DEE DEE - Respiratory Respiratory exam: Present: clear to auscultation bilaterally - Cardiovascular Cardiovascular exam: Present: regular rate and rhythm - GI/Abdominal GI/Abdominal exam: Present: normal bowel sounds, soft. Absent: guarding, tenderness, rebound - Extremities Exam Extremities exam: Absent: edema - Psychiatric Psychiatric exam: Present: normal affect, normal mood - Skin Skin exam: Present: warm Results - Labs CBC & BMP: 05/29/17 05:27 05/28/17 05:13
--- NOTE | 2017-05-29 14:04 | Anesthesia Post-Op ---
Anesthesia Post OP - Post Ansesthetic Evaluation Patient seen in post op: Yes Resp: within normal limits CV: within normal limits Mental: within normal limits Temp: within normal limits [id number]: within normal limits Nausea and Vomiting: within normal limits Pain: within normal limits
--- NOTE | 2017-05-29 15:12 | Discharge Summary ---
<Susan Ling - Last Filed: 05/29/17 14:47> Hospital Course - Hospital Course Hospital Course: Ms Brito 62 y/o black female with PMHx hypertension, GERD, Arthritis and hemorroids presented to ED non-urgent on 05/27/17 for c/o dark, red blood in stool x1 BM. In ED: Abd xray: negative bowel gas pattern. CXR: borderline cardiomegaly and obesity; no acute cardia pulmonary disease. EKG sinus rhythm HR 71. LABS: H&H 11.5 & 33.8; INR 1.0; PT 10.9; electrolytes within normal range. Urine noted for urinary tract infection. Hospitalist services consulted for admission on 05/27/17. Levaquin IV antibiotics started. GI was consulted. Throughout hospitalization the patients H&H remained stable without requiring any treatment or transfusions. GI results as followed: 05/28/17--UPPER GI scope performed: EGD: No cause seen for bleeding on the upper GI tract to the magnitude seen on exam, will proceed with colonoscopy tomorrow after prep today. 05/29/17-- colonoscopy was performed today with the following findings: Normal colonoscopy with heavy bowen-diverticulosis noted possibly the source of this patient's previous bleeding. No polyps or other bleeding source seen, moderate size internal hemorrhoids noted on retroflex. Evidence of previous polypectomy site noted in the rectum. It is suspected the bleeding may have to do with the diverticular sites noted throughout the colon. 05/29/17 - Patient had no repeat episodes of bleeding and appears better today. Patient H&H remains stable at 11.4 & 34.3 this a.m. From GI standpoint, it is agreed that the patient can be discharged home. Patient will discharged home today and will need to follow up with primary care physician. GI recommends to have a repeat colonscopy in 5-10 years. Patient will need to follow up with biopsy by phone in 1-[address] Serrato office. Discharge Plan - Discharge Data Disposition: Disch To Home/Self Care - Discharge Medications Continue Gabapentin 300 mg PO TID Omeprazole 40 mg PO DAILY Metoprolol Tartrate 50 mg PO BID amLODIPine [Norvasc] 10 mg PO DAILY Celecoxib 200 mg PO BID - Follow Up or Referral - Forms/Instructions Exam - Constitutional Vitals: Period Temp Pulse Resp BP Sys/Cantor Pulse Ox Last 24 Hr 97.6 F-99.0 F 83-102 16-20 119-150/62-93 92-97 Discharge Results Procedures and tests throughout hospitalization: Pending Orders 05/30/17 04:00 Prothrombin Time INR IN AM Labs on day of discharge: Labs from last 24 hours 05/29/17 05/29/17 05/29/17 14:57 11:10 07:20 WBC RBC Hgb Hct MCV MCH MCHC RDW Plt Count MPV Neut % (Auto) Lymph % (Auto) [place] % (Auto) Eos % (Auto) Baso % (Auto) Neut # (Auto) Lymph # (Auto) [place] # (Auto) Eos # (Auto) Baso # (Auto) Total Counted Immature Gran % Nucleated RBC % Immature Gran # Segmented Neutrophils Lymphocytes Monocytes Nucleated RBCs # Platelet Estimate Immature Plt Fraction Polychromasia Hypochromasia INR PT Patient/Control Mix POC Glucose 68 L 96 114 H 05/29/17 05/29/17 05/28/17 05:27 05:27 17:50 WBC 6.7 D RBC 3.65 L Hgb 11.4 L 12.8 Hct 34.6 L 38.9 MCV 94.8 MCH 31 MCHC 32.9 RDW 12.2 Plt Count 219 MPV 10.8 Neut % (Auto) 61.7 Lymph % (Auto) 27.5 [place] % (Auto) 9.2 Eos % (Auto) 0.8 Baso % (Auto) 0.3 Neut # (Auto) 4.1 Lymph # (Auto) 1.8 [place] # (Auto) 0.6 Eos # (Auto) 0.1 Baso # (Auto) 0.0 Total Counted 100 Immature Gran % 0.5 Nucleated RBC % 0.0 Immature Gran # 0.03 Segmented Neutrophils 66 Lymphocytes 29 Monocytes 5 Nucleated RBCs # 0.00 Platelet Estimate Adequate Immature Plt Fraction 0.0 Polychromasia Slight Hypochromasia 1+ INR 1.1 PT Patient/Control Mix 11.6 POC Glucose DS: Provider Date of admission: 05/27/17 13:56 Primary care physician: . No PCP Attending physician on admission: Trisha Bethea MD Consults: 05/27/17 16:40 Consult to Physician [CONS] Routine Comment: gi bleed Consulting Provider: Phillip Serrato When should Consulting Provider be notified: In am Person Notified: Dr Serrato Date Notified: 05/27/17 Time Notified: 16:45 Consult Notification Comment: Dr Serrato on floor rounding and notified of patient. Discharging clinician: Susan Ling NP <Trisha Bethea - Last Filed: 05/29/17 15:34> Hospital Course - Time spent with patient Time with patient DS: Greater than 30 minutes (35) Diagnosis - Discharge Diagnosis (1) GI bleed Status: Resolved (2) UTI (urinary tract infection) Status: Resolved (3) Hypertension Status: Chronic (4) Diverticulosis Status: Chronic Discharge Plan - Discharge Data Condition at Discharge: Stable Discharge Diet: high fiber diet Activity: increase activity as tolerated Hygiene: no restrictions Weight Bearing at Discharge: weight bear as tolerated Driving: no restrictions Contact your physician if you experience:: Shortness of breath, Bleeding Exam - Constitutional General appearance: over weight - Head Head exam: Present: normocephalic, atraumatic - Eye Eye exam: Present: EOMI Pupils: Present: DEE DEE - ENT ENT exam: Present: normal exam - Neck Neck exam: Present: normal inspection - Respiratory Respiratory exam: Present: clear to auscultation bilaterally. Absent: rhonchi, wheezes - Cardiovascular Cardiovascular exam: Present: regular rate and rhythm - GI/Abdominal GI/Abdominal exam: Present: normal bowel sounds, soft. Absent: tenderness, rebound - Extremities Exam Extremities exam: Present: normal inspection - Back Exam Back exam: Present: normal inspection - Neurological Exam Neurological exam: Present: alert, oriented X3 - Psychiatric Psychiatric exam: Present: normal affect, normal mood - Skin Skin exam: Present: warm, intact
--- NOTE | 2017-05-29 17:25 | Pathology Report from [facility] ---
[facility] [place] # : [id number] PATIENT NAME : Sari Brito ORDERING DR : Phillip Serrato MD CLINICAL HX: Melena POST-OP DX: #1 Anemia - R/O Sprue #2 Severe, non erosive gastritis SPECIMEN INFO: #1 Duodenum #2 ENIO GROSS DESCRIPTION: #1 Received in formalin labeled with the patients name SARI BRITO and #1 consists of fragments of fitch mucosal tissue collectively measuring 0.6 x 0.4 cm. Submitted in cassette #1.#2 Received in formalin labeled with the patients name SARI BRITO and #2 consists of fragments of fitch mucosal tissue collectively measuring 1.0 x 0.4 cm. Submitted in cassette #2. DIAGNOSIS FOR SARI BRITO: #1 DUODENUM: Benign small bowel mucosa with normal villous architecture and mild chronic inflammation. No evidence of Sprue. #2 GASTRIC ANTRAL BIOPSY: Chronic gastritis. No evidence of malignancy. H. pylori-like organisms NOT seen on H&E nor special stain with appropriate control. COLLECTED DATE: 05/28/2017 [facility] REPORT DATE: 05/29/2017 ELECTRONICALLY SIGNED BY: Popeye Roberts III, M.D. 05/29/2017 - 11:28:04 CHRISTIANO
[2017-05-29 17:29] VITALS: BP 169/89
== END 2017-05-29 17:09 | disposition home or self-care (01) | DRG 378 ==
LOC: N.ED 11:01 → N.EDINP 13:56 → N.2E 15:52
PROVIDERS: ADMIT Internal Medicine; ATTEND Internal Medicine